=== PATIENT | female | born 1950 | race Caucasian/White ===

== ENCOUNTER 2022-07-11 18:46 | Emergency (ER) | payer MEDICARE, BC ==
[2022-07-11 19:04] VITALS: O2SAT 97
[2022-07-11] MEDS ORDERED: Adacel Vial IM ONE ×2 (19:08→19:13)
[2022-07-11] MEDS ORDERED: XYLOCAINE 1% HCL 20 ML MDV ONE (19:31)
[2022-07-11] MEDS ORDERED: XYLOCAINE 1% HCL 20 ML MDV IJ ONE (19:37)
--- NOTE | 2022-07-11 19:55 | ERPHSYRPT ---
- History of Present Illness Time Seen by Provider: 07/11/22 19:50 Source: patient, family Exam Limitations: no limitations Patient Subjective Stated Complaint: pt cut left thumb tip with a knife Triage Nursing Assessment: Pt brought to the ER by her , hypertensive, rates pain 5/10 in her thumb, bleeding when bandage removed, denies any other injuries Physician History: pt reports incised left thumb with knife by accident. No other injury. did not fall or feel dizzy. tendon function/flex/ext distal and prox phalanx intact. nontender krystian structures with full ROM. distal neurovasc all intact. Tet will need updating TDAP. Timing/Duration: today Quality: painful Severity: mild Location: hands Possible Causes: other (lac) Allergies/Adverse Reactions: No Known Drug Allergies Allergy (Verified 07/11/22 19:04) Home Medications: Alendronate Sodium [Fosamax] 70 mg PO WEEKLY 07/11/22 [History] Fluticasone/Umeclidin/Vilanter [Trelegy Ellipta 100-62.5-25] 1 inh PO UD 07/11/22 [History] LORazepam [Lorazepam] 2 mg PO DAILY 07/11/22 [History] Rosuvastatin Calcium 5 mg PO DAILY 07/11/22 [History] Sertraline HCl [Zoloft] 100 mg PO DAILY 07/11/22 [History] Trazodone HCl 150 mg PO DAILY 07/11/22 [History] Hx Tetanus, Diphtheria Vaccination/Date Given: No Travel Risk - International Travel Have you traveled outside of the country in past 3 weeks: No - Coronavirus Screening Are you exhibiting any of the following symptoms?: No - Vaccine Status Have you recieved a Covid-19 vaccination: Yes [employer]: Moderna - Vaccination Dates Date of 2cond Vaccination (if applicable): 2020 - Review of Systems Constitutional: No Fever, No Chills Eyes: No Symptoms Ears, Nose, & Throat: No Symptoms Respiratory: No Cough, No Dyspnea Cardiac: No Chest Pain, No Edema, No Syncope Abdominal/Gastrointestinal: No Abdominal Pain, No Nausea, No Vomiting, No Diarrhea Genitourinary Symptoms: No Dysuria Musculoskeletal: No Symptoms, No Back Pain, No Neck Pain, No Fall, No Injury, No Joint Pain Skin: Other (left thumb lac), No Rash Neurological: No Dizziness, No Focal Weakness, No Sensory Changes Psychological: No Symptoms Endocrine: No Symptoms Hematologic/Lymphatic: No Symptoms Immunological/Allergic: No Symptoms All Other Systems: Reviewed and Negative - Past Medical History Pertinent Past Medical History: Yes Cardiac History: High Cholesterol Respiratory History: COPD Musculoskeletal History: Osteoporosis GI Medical History: Colitis - Past Surgical History Past Surgical History: Yes Gastrointestinal: Appendectomy, Cholecystectomy, Exploratory Laparoscopy Musculoskeletal: Other Female Surgical History: Tubal Ligation, Other Other Surgical History: ulnar nerve, carpal tunnel, removed part of left ovary - Social History Smoking Status: Former smoker Exposure to second hand smoke: No Drug Use: none Patient Lives Alone: No - Nursing Vital Signs Nursing Vital Signs: Initial Vital Signs Temperature 97.4 F 07/11/22 18:50 Pulse Rate 61 07/11/22 18:50 Blood Pressure 142/63 07/11/22 18:50 O2 Sat by Pulse Oximetry 97 07/11/22 18:50 Pain Scale Pain Intensity 5 - Physical Exam General Appearance: no apparent distress, alert Eye Exam: PERRL/EOMI, eyes nml inspection Ears, Nose, Throat Exam: normal ENT inspection, pharynx normal, moist mucous membranes Neck Exam: normal inspection, non-tender, supple, full range of motion Respiratory Exam: normal breath sounds, lungs clear, No respiratory distress Cardiovascular Exam: regular rate/rhythm, normal heart sounds Gastrointestinal/Abdomen Exam: soft, mass, No tenderness Pelvic Exam: deferred Rectal Exam: deferred Back Exam: normal inspection, normal range of motion, No CVA tenderness, No vertebral tenderness Extremity Exam: normal inspection, normal range of motion Neurologic Exam: alert, oriented x 3, cooperative, normal mood/affect, sensation nml, No motor deficits Skin Exam: normal color, warm, dry, other (lac left distal thumb) SpO2 Interpretation: normal SpO2: 97 O2 Delivery: Room Air Procedures - Laceration/Wound Repair Left Distal Finger Wound Location: Left, hand Wound Length (cm): 2 Wound's Depth, Shape: linear, into subcut Wound Explored: no foreign body noted Irrigated: Yes (100 cc NS) Hibiclens Prep: Yes Anesthesia: local, 1% Lidocaine Volume Anesthetic (ccs): 2 Wound Debrided: minimal Wound Repaired With: sutures Suture Size/Type: 4-0, prolene Number of Sutures: 3 Layer Closure?: No Sterile Dressing Applied?: Yes Splint Applied?: No Sling Applied?: No - Course Nursing assessment & vital signs reviewed: Yes Ordered Tests: Medication Summary Discontinued Medications Generic Name Dose Route Start Last Admin Trade Name Matt PRN Reason Stop Dose Admin Bacitracin Zinc 0.9 each 07/11/22 20:14 07/11/22 20:14 Bacitracin Packet 1 Each Pckt TP 07/11/22 20:15 0.9 each STAT ONE Administration Bacitracin Zinc Confirm 07/11/22 20:14 Bacitracin Packet 1 Each Pckt Administered 07/11/22 20:15 Dose 1 each .ROUTE .STK-MED ONE Diphtheria/Tetanus/Acell Pertussis 0.5 ml 07/11/22 19:08 07/11/22 19:14 Tdap --Diph,Pertuss(Acell),Tet Vac/Pf 0.5 Ml Vial IM 07/11/22 19:09 0.5 ml .ONCE ONE Administration Diphtheria/Tetanus/Acell Pertussis Confirm 07/11/22 19:13 Tdap --Diph,Pertuss(Acell),Tet Vac/Pf 0.5 Ml Vial Administered 07/11/22 19:14 Dose 0.5 ml IM .STK-MED ONE Lidocaine HCl Confirm 07/11/22 19:31 Lidocaine Hcl 1% 20 Ml Mdv 20 Ml Ml Administered 07/11/22 19:32 Dose 5 ml .ROUTE .STK-MED ONE Lidocaine HCl 5 ml 07/11/22 19:37 07/11/22 19:38 Lidocaine Hcl 1% 20 Ml Mdv 20 Ml Ml IJ 07/11/22 19:38 5 ml STAT ONE Administration - Progress Progress: improved, re-examined Progress Note: 07/11/22 20:21 no tendon injury or neuro injury noted on exploration of wound. Counseled pt/family regarding: diagnosis, need for follow-up - Departure Departure Disposition: Home Clinical Impression: Laceration of left thumb Condition: Good Critical Care Time: No Referrals: CAROLINA EVANS [Primary Care Provider] - Follow up/PCP as directed Instructions: Wound Care (DC), Laceration Repair With Stitches (DC) Additional Instructions: sutures may be removed by your Dr. in 10 days. Have wound check first of this week. Change dressing daily. Return meantime if any redness, drainage or other concerns. Follow-up with your DrPhilip for blood pressure. Prescriptions: Mupirocin [Bactroban OINTMENT] 22 gm TP BID #1 Cephalexin Mh 500 mg [Keflex 500 mg] 500 mg PO TID 7 Days #21 cap
[2022-07-11] MEDS ORDERED: BACIGUENT PACKET TP ONE (20:14)
[2022-07-11] MEDS ORDERED: BACIGUENT PACKET ONE (20:14)
[2022-07-11 20:21] VITALS: BP 136/86; PULSE 60
== END 2022-07-11 20:33 | disposition home or self-care (01) ==
LOC: ED 18:46
DX: S61.012A Laceration without foreign body of left thumb without damage to nail, initial encounter (principal); W26.0XXA Contact with knife, initial encounter; E78.5 Hyperlipidemia, unspecified; J44.9 Chronic obstructive pulmonary disease, unspecified; Z79.899 Other long term (current) drug therapy
CPT/HCPCS: 12001; 90471; 90715; 96372; 99283; A9270-GY

== ENCOUNTER 2025-03-09 18:56 | Emergency (ER) | payer MEDICARE, BC ==
[2025-03-09 20:29] VITALS: TEMP 97
--- NOTE | 2025-03-09 22:33 | ERPHSYRPT ---
- History of Present Illness Time Seen by Provider: 03/09/25 22:33 Source: patient Exam Limitations: no limitations Patient Subjective Stated Complaint: "I've been shaking all over for about a month and they don't really know what's causing all of this. I've been having diarrhea and think I may be dehydrated". Triage Nursing Assessment: Pt presents to ER with complaints of shaking all over that has been going over for a month and has complaints of diarrhea. Has been on appetite stimulates and has history of anoxeria and has had weight gain of 50lbs in the past 6 months. Appears anxious and nervous. Has hx of COPD and wears home o2, has had breathing treatments been reduced to help with the shaking. Pt is alert and oriented x 3. Skin is pink, warm, and dry. Respirations are easy. Physician History: Patient presents to the emergency room with concerns about her overall health. Patient very anxious on evaluation. She has a history of anxiety, anorexia and bulimia. She reports increasing frequency of loose stools which has been a chronic issue. Muscle spasm, cramping and rigidity at times. She has COPD and is on oxygen and reports no worsening in breathing. Denies chest pain or abdominal pain. No urinary symptoms. She has multiple medications that could be causing some of her symptoms. Her daughter brought up concern for possible Parkinson disease which is very possible based off of her chronic benzodiazepine use, muscle rigidity. Timing/Duration: gradual onset Severity: mild Associated Symptoms: shortness of breath (baseline), No nausea, No vomiting, No abdominal pain, No chest pain, No fever Allergies/Adverse Reactions: No Known Drug Allergies Allergy (Verified 03/09/25 20:29) Home Medications: Albuterol 2.5 mg/3 ml Neb [Proventil 2.5 mg/3 ml Neb] 1.25 mg IH BID 03/09/25 [History] Alendronate Sodium 70 mg [Fosamax 70 MG] 70 mg PO WEEKLY 03/09/25 [History] Aspirin EC 81 mg [Ecotrin 81 mg] 81 mg PO HS 03/09/25 [History] Calcium Carbonate [Calcium] 600 mg PO HS 03/09/25 [History] Docusate Sodium 100 mg [Docusate Sodium 100 MG] 100 mg PO Q2D 03/09/25 [History] Donepezil HCl 10 mg [Aricept 10 MG] 10 mg PO HS 03/09/25 [History] Fenofibrate Nanocrystallized [Fenofibrate] 48 mg PO HS 03/09/25 [History] Fluticasone/Umeclidin/Vilanter [Trelegy Ellipta 100-62.5-25] 1 each IH DAILY 03/09/25 [History] LORazepam [Lorazepam] 1 mg PO HS 03/09/25 [History] Levocetirizine Dihydrochloride 5 mg PO HS 03/09/25 [History] Megestrol Acetate 20 mg PO DAILY 03/09/25 [History] Omeprazole 20 mg PO DAILY 03/09/25 [History] Rosuvastatin Calcium 5 mg PO HS 03/09/25 [History] Sertraline HCl 50 mg [Zoloft 50 mg Tablet] 100 mg PO HS 03/09/25 [History] Tolterodine Tartrate 2 mg PO HS 03/09/25 [History] Trazodone HCl 50 mg [Desyrel 50 mg] 150 mg PO HS 03/09/25 [History] Hx Tetanus, Diphtheria Vaccination/Date Given: No Hx Influenza Vaccination/Date Given: Yes Hx Pneumococcal Vaccination/Date Given: Yes Immunizations Up to Date: No Travel Risk - International Travel Have you traveled outside of the country in past 3 weeks: No - Emerging Infectious Disease Are you exhibiting symptoms associated with any current EIDs: No - Review of Systems All Other Systems: Reviewed and Negative - Past Medical History Pertinent Past Medical History: Yes Cardiac History: High Cholesterol Respiratory History: COPD Musculoskeletal History: Osteoporosis GI Medical History: Colitis - Past Surgical History Past Surgical History: Yes Gastrointestinal: Appendectomy, Cholecystectomy, Exploratory Laparoscopy Musculoskeletal: Other Female Surgical History: Tubal Ligation, Other Other Surgical History: ulnar nerve, carpal tunnel, removed part of left ovary - Social History Smoking Status: Former smoker Exposure to second hand smoke: No Drug Use: none - Social Determinants of Health Will the patient participate in the screening: Yes Do you worry about a steady place to live?: No Do you have any problems with any of the following?: No known problems In the past 12 months,have you had to go without utilities?: No Transportation Issues: No Has anyone in your support network made you feel unsafe?: No Have you or anyone in your house had to go w/o enough food: No - Nursing Vital Signs Nursing Vital Signs: Initial Vital Signs Temperature 97 F 03/09/25 20:22 Pulse Rate 88 03/09/25 20:22 Respiratory Rate 18 03/09/25 20:22 Blood Pressure 121/94 03/09/25 20:22 O2 Sat by Pulse Oximetry 95 03/09/25 20:22 Pain Scale Pain Intensity 0 - Physical Exam General Appearance: no apparent distress, thin Ears, Nose, Throat Exam: normal ENT inspection Neck Exam: normal inspection, supple, full range of motion Respiratory Exam: airway intact, diminished breath sounds, No respiratory distress Cardiovascular Exam: regular rate/rhythm, normal heart sounds, capillary refill <2 sec, No edema Gastrointestinal/Abdomen Exam: soft, No tenderness, No distention, No mass, No guarding, No rebound Extremity Exam: normal inspection, No tenderness Neurologic Exam: alert, oriented x 3, cooperative Skin Exam: normal color, warm, dry, No rash SpO2 Interpretation: normal SpO2: 95 O2 Delivery: Nasal Cannula - Course Nursing assessment & vital signs reviewed: Yes EKG Interpreted by Me: RATE (70), Sinus Rhythm, NORMAL AXIS, NORMAL INTERVALS, NORMAL QRS, NORMAL ST-T Ordered Tests: Active Orders 24 hr Category Date Time Status EKG-ER Only STAT Care 03/09/25 22:33 Active CBC W DIFF Stat Lab 03/09/25 23:00 Completed CK (IN-HOUSE) [CK-Creatinine Phosphokinase] Stat Lab 03/09/25 23:00 Completed CMP Stat Lab 03/09/25 23:00 Completed MAGNESIUM Stat Lab 03/09/25 23:00 Completed TSH, 3RD Generation Stat Lab 03/09/25 23:00 Received UA W/RFX UR CULTURE Stat Lab 03/09/25 23:11 Completed Lab/Rad Data: Laboratory Result Diagrams 03/09/25 23:00 03/09/25 23:00 Laboratory Results 03/09/25 03/09/25 03/09/25 Range/Units 23:11 23:00 23:00 WBC (3.98-10.04) x10^3/uL RBC (3.93-5.22) x10^6/uL Hgb (11.2-15.7) g/dL Hct (34.1-44.9) % MCV (79.4-94.8) fL MCH (25.6-32.2) pg MCHC (32.2-35.5) g/dL RDW (11.7-14.4) % Plt Count (182-369) x10^3/uL MPV (9.4-12.3) fL Gran % (34.0-71.1) % Immature Gran % (Auto) (0.001-0.429) % Nucleat RBC Rel Count (0.00-0.2) % Eos # (Auto) (0.04-0.36) x10^3/uL Immature Gran # (Auto) (0.001-0.031) x10^3u/L Absolute Lymphs (auto) (1.18-3.74) x10^3/uL Absolute Monos (auto) (0.24-0.86) x10^3/uL Absolute Nucleated RBC (0.00-0.012) x10^3u/L Lymphocytes % (19.3-51.7) % Monocytes % (4.7-12.5) % Eosinophils % (0.7-5.8) % Basophils % (0.1-1.2) % Absolute Granulocytes (1.56-6.13) x10^3/uL Basophils # (0.01-0.08) x10^3/uL Sodium (135-145) mmol/L Potassium (3.5-5.1) mmol/L Chloride (98-107) mmol/L Carbon Dioxide (22-30) mmol/L Anion Gap (5-15) MEQ/L BUN (7-17) mg/dL Creatinine (0.52-1.04) mg/dL Estimated GFR ML/MIN Glucose (74-106) mg/dL Calcium (8.4-10.2) mg/dL Magnesium (1.6-2.3) mg/dL Total Bilirubin (0.2-1.3) mg/dL AST (14-36) U/L ALT (0-35) U/L Alkaline Phosphatase (38-126) U/L Creatine Kinase 52 (30-135) U/L Serum Total Protein (6.3-8.2) g/dL Albumin (3.5-5.0) g/dL Free T4 1.46 (0.78-2.19) ng/dL Urine Color Dark Yellow A (Yellow) Urine Appearance Clear (Clear) Urine pH 5.0 (4.6-8.0) Ur Specific [place] 1.025 (1.005-1.030) Urine Protein 30 (Negative) Urine Glucose (UA) Negative (Negative) mg/dL Urine Ketones Trace A (Negative) Urine Blood Negative (Negative) Urine Nitrite Negative (Negative) Urine Bilirubin Negative (Negative) Urine Urobilinogen 1.0 A (0.2) mg/dL Ur Leukocyte Esterase Negative (Negative) U Hyaline Cast (Auto) NONE SEEN (0-2) /LPF Urine Microscopic RBC 0-2 (0-5) /HPF Urine Microscopic WBC 0-2 (0-5) /HPF Ur Epithelial Cells None Seen (None Seen) /HPF Urine Bacteria None Seen (None Seen) /HPF Urine Culture Reflexed NO (NO) 03/09/25 03/09/25 Range/Units 23:00 23:00 WBC 5.7 (3.98-10.04) x10^3/uL RBC 4.04 (3.93-5.22) x10^6/uL Hgb 12.7 (11.2-15.7) g/dL Hct 37.8 (34.1-44.9) % MCV 93.6 (79.4-94.8) fL MCH 31.4 (25.6-32.2) pg MCHC 33.6 (32.2-35.5) g/dL RDW 12.4 (11.7-14.4) % Plt Count 191 (182-369) x10^3/uL MPV 9.7 (9.4-12.3) fL Gran % 62.8 (34.0-71.1) % Immature Gran % (Auto) 0.7 H (0.001-0.429) % Nucleat RBC Rel Count 0.0 (0.00-0.2) % Eos # (Auto) 0.18 (0.04-0.36) x10^3/uL Immature Gran # (Auto) 0.04 H (0.001-0.031) x10^3u/L Absolute Lymphs (auto) 1.46 (1.18-3.74) x10^3/uL Absolute Monos (auto) 0.40 (0.24-0.86) x10^3/uL Absolute Nucleated RBC 0.00 (0.00-0.012) x10^3u/L Lymphocytes % 25.4 (19.3-51.7) % Monocytes % 7.0 (4.7-12.5) % Eosinophils % 3.1 (0.7-5.8) % Basophils % 1.0 (0.1-1.2) % Absolute Granulocytes 3.60 (1.56-6.13) x10^3/uL Basophils # 0.06 (0.01-0.08) x10^3/uL Sodium 140 (135-145) mmol/L Potassium 4.4 (3.5-5.1) mmol/L Chloride 108 H (98-107) mmol/L Carbon Dioxide 21 L (22-30) mmol/L Anion Gap 15.9 H (5-15) MEQ/L BUN 15 (7-17) mg/dL Creatinine 0.87 (0.52-1.04) mg/dL Estimated GFR 69.0 ML/MIN Glucose 111 H (74-106) mg/dL Calcium 9.7 (8.4-10.2) mg/dL Magnesium 1.9 (1.6-2.3) mg/dL Total Bilirubin 0.80 (0.2-1.3) mg/dL AST 33 (14-36) U/L ALT 19 (0-35) U/L Alkaline Phosphatase 33 L (38-126) U/L Creatine Kinase (30-135) U/L Serum Total Protein 7.6 (6.3-8.2) g/dL Albumin 4.9 (3.5-5.0) g/dL Free T4 (0.78-2.19) ng/dL Urine Color (Yellow) Urine Appearance (Clear) Urine pH (4.6-8.0) Ur Specific [place] (1.005-1.030) Urine Protein (Negative) Urine Glucose (UA) (Negative) mg/dL Urine Ketones (Negative) Urine Blood (Negative) Urine Nitrite (Negative) Urine Bilirubin (Negative) Urine Urobilinogen (0.2) mg/dL Ur Leukocyte Esterase (Negative) U Hyaline Cast (Auto) (0-2) /LPF Urine Microscopic RBC (0-5) /HPF Urine Microscopic WBC (0-5) /HPF Ur Epithelial Cells (None Seen) /HPF Urine Bacteria (None Seen) /HPF Urine Culture Reflexed (NO) - Progress Progress: improved Progress Note: 03/09/25 22:45 CBC, CMP, UA, TSH, free T4 and CK ordered. Will evaluate for electrolyte abnormalities, rhabdomyolysis and thyroid dysfunction. No neurologic abnormalities at this time. Recommend outpatient follow-up with neurologist for evaluation of Parkinson's disease. No need for medication management at this time. EKG ordered due to premature ventricular complexes appreciated on rhythm strip. EKG shows no acute ST or T wave changes. 03/10/25 00:08 Labs unremarkable. Patient feeling better on reevaluation. I recommend follow- up with primary physician and neurology to evaluate for neuromuscular/movement disorder. I feel there is also a possible element of anxiety over health concerns as well as polypharmacy. Patient and daughter agreeable to plan. Counseled pt/family regarding: lab results, need for follow-up Medical Desision Making - Diagnostic Testing Diagnostic test were ordered, analyzed, and reviewed by me: Yes Radiological Interpretation: Interpreted by me - Risk of complications Low Risk: Low risk of morbidity from additional dx testing or treatment - Departure Departure Disposition: Home Clinical Impression: Anxiety about health, Muscle rigidity, Polypharmacy Condition: Good Critical Care Time: No Referrals: CAROLINA EVANS [Primary Care Provider, INTERNAL MEDICINE] - Follow up/PCP as directed Instructions: Muscle Weakness
[2025-03-09 23:02] LABS: Basophil (Absolute #) 0.06 x10^3/uL (0.01-0.08); Eosinophil % 3.1 % (0.7-5.8); Eosinophil (Absolute #) 0.18 x10^3/uL (0.04-0.36); Hematocrit 37.8 % (34.1-44.9); Hemoglobin 12.7 g/dL (11.2-15.7); IMMATURE GRAN # 0.04 x10^3u/L (0.001-0.031); IMMATURE GRAN % 0.7 % (0.001-0.429); Lymphocyte (Absolute #) 1.46 x10^3/uL (1.18-3.74); Lymphocytes % 25.4 % (19.3-51.7); Mean Cell Volume 93.6 fL (79.4-94.8); Mean Corpuscular Hemoglobin 31.4 pg (25.6-32.2); Mean Corpuscular Hgb Concent. 33.6 g/dL (32.2-35.5); Mean Platelet Volume 9.7 fL (9.4-12.3); Neutrophil % 62.8 % (34.0-71.1); Platelet Count 191 x10^3/uL (182-369); Red Blood Count 4.04 x10^6/uL (3.93-5.22); Red Cell Distribution Width 12.4 % (11.7-14.4); White Blood Count 5.7 x10^3/uL (3.98-10.04)
[2025-03-09 23:18] LABS: ALBUMIN 4.9 g/dL (3.5-5.0); ANION GAP 15.9 MEQ/L (5-15); BILIRUBIN,TOTAL 0.8 mg/dL (0.2-1.3); Calcium 9.7 mg/dL (8.4-10.2); Creatinine 1 0.87 mg/dL (0.52-1.04); MAGNESIUM 1.9 mg/dL (1.6-2.3); Potassium 4.4 mmol/L (3.5-5.1); Total Protein 7.6 g/dL (6.3-8.2)
[2025-03-09 23:20] LABS: Appearance Clear (Clear); Bacteria None Seen /HPF (None Seen); Bilirubin Negative (Negative); Blood Negative (Negative); Epithelial Cells None Seen /HPF (None Seen); Glucose, Urine Negative (Negative); Hyaline Casts NONE SEEN /LPF (0-2); Ketones Trace (Negative); Leukocyte Esterase Negative (Negative); Nitrite Negative (Negative); Protein,Urine Dip 30 (Negative); RBC 0-2 /HPF (0-5); Specific Gravity 1.025 (1.005-1.030); WBC 0-2 /HPF (0-5)
[2025-03-10 00:09] VITALS: BP 143/98; PULSE 71; RESP 21
[2025-03-10 00:12] VITALS: O2SAT 95
== END 2025-03-10 00:25 | disposition home or self-care (01) ==
LOC: ED 18:56
DX: F45.9 Somatoform disorder, unspecified (principal); M62.89 Other specified disorders of muscle; Z91.89 Other specified personal risk factors, not elsewhere classified; Z79.899 Other long term (current) drug therapy
CPT/HCPCS: 36415; 80053; 81001; 82550; 83735; 84439; 84443; 85025; 93005; 99284; P9612; 99283